=== PATIENT | female | born 1975 | race Caucasian/White ===

== ENCOUNTER 2023-12-19 01:37 | Day surgery (SDC) | payer OTHER, SELFPAY ==
[2023-12-02 13:31] VITALS: BMI 30.7
--- NOTE | 2023-12-19 10:02 | WPDANESEPPF ---
Anes - Initial Pre Proc Eval Procedure: Operation Date: 12/19/23 11:00 Proposed Procedures p Screening Colonoscopy - Joshua More DO Date/Time: 12/19/23 10:02 Surgeon: Joshua More DO Pre Op Diagnosis: Neoplasm screening Patient Data Age: 48 Gender: F Height: 1.68 m Weight: 86.3 kg Allergies Allergy/AdvReac Type Severity Reaction Status Date / Time acetaminophen [From [place]] Allergy Mild Flushing Verified 12/19/23 10:03 diphenhydramine Allergy Mild Hyperactive Verified 12/19/23 10:03 [From Benadryl] hydrocodone [From [place]] Allergy Mild Flushing Verified 12/19/23 10:03 Home Medications Medication Instructions Recorded Confirmed Type atorvastatin 20 mg tablet 20 mg PO QHS #90 tabs 10/07/23 12/19/23 Rx Patient hx anesthesia problems: none Family hx anesthesia problems: none Results Review: All pre-operative results and documents have been reviewed as part of the pre-operative evaluation. REPLACED BY [facility] Past Medical History Medical History (Updated 10/07/23 @ 15:17 by Shreya Connolly) Encounter for screening for malignant neoplasm of colon Trigger finger Surgical History Surgical History H/O cystoscopy H/O dilation and curettage S/P ACL repair Family History Family History Father Hypertension Family history of cardiovascular disease Family history of arthritis Diabetes mellitus Mother Hypertension Family history of cardiovascular disease Sibling Asthma Family history of arthritis Social History Social History Smoking status: Never smoker Alcohol intake: current Drinks per week: 3 Substance use: never Substance use type: does not use Living arrangements: with family Spiritual care concerns: No Anes - Eval Final PreProcedure Day of Procedure 12/19/23 10:02 Patient weight: obese Heart: regular rate and rhythm Lungs: clear to auscultation Neurological: alert and oriented Last oral intake: >/= 8 hours ASA classification: II Emergent: no Anesthetic plan: proceed Anesthesia type and monitoring: general GIVS and standard monitoring Results Review: All pre-operative results and documents have been reviewed as part of the pre-operative evaluation. Informed Consent: The patient's anesthetic plan and its attendant risks and benefits were discussed with the patient/family/POA. Questions were solicited and answers provided to the satisfaction of the patient/family/POA.
[2023-12-19 10:04] VITALS: BP 106/63; PULSE 73; RESP 16; TEMP 36; O2SAT 100; BMI 30.7
--- NOTE | 2023-12-19 10:52 | PM.IMHP ---
H&P: HPI History of Present Illness Date/Time: 12/19/23 10:52 Chief Complaint: screening for colorectal cancer Narrative: this is a 48-year-old woman who presents for colonoscopy. She denies any hematochezia or melena. She denies any family history cancer in first-degree relatives. Review of Systems Review of Systems: All systems reviewed & are unremarkable except as noted in HPI and below Constitutional: Constitutional: Denies chills, Denies fever(s), Denies headache(s) and Denies weight loss Eyes: Eyes: Denies change in vision ENT: Denies dizziness, Denies headache(s), Denies neck mass and Denies throat swelling Cardiovascular: Cardiovascular: Denies chest pain, Denies lightheadedness and Denies dyspnea Respiratory: Respiratory: Denies cough, Denies dyspnea and Denies wheezing Gastrointestinal: Gastrointestinal: Denies abdominal pain, Denies change in bowel habits, Denies nausea and Denies vomiting Genitourinary: Genitourinary: Denies hematuria and Denies dysuria Musculoskeletal: Musculoskeletal: Reports as per HPI Integumentary/Breasts: Skin/Breast: Reports as per HPI Neurologic: Denies dizziness and Denies headache(s) Allergic/Immunologic: Allergic/Immunologic: Denies throat swelling and Denies wheezing [facility] Past Medical History Medical History (Updated 10/07/23 @ 15:17 by Shreya Connolly) Encounter for screening for malignant neoplasm of colon Trigger finger Surgical History Surgical History H/O cystoscopy H/O dilation and curettage S/P ACL repair Family History Family History Father Hypertension Family history of cardiovascular disease Family history of arthritis Diabetes mellitus Mother Hypertension Family history of cardiovascular disease Sibling Asthma Family history of arthritis Social History Social History Smoking status: Never smoker Alcohol intake: current Drinks per week: 3 Substance use: never Substance use type: does not use Living arrangements: with family Spiritual care concerns: No Meds Home Medications and Allergies Home Medications Medication Instructions Recorded Confirmed Type atorvastatin 20 mg tablet 20 mg PO QHS #90 tabs 10/07/23 12/19/23 Rx Allergies Allergy/AdvReac Type Severity Reaction Status Date / Time acetaminophen [From [place]] Allergy Mild Flushing Verified 12/19/23 10:03 diphenhydramine Allergy Mild Hyperactive Verified 12/19/23 10:03 [From Benadryl] hydrocodone [From [place]] Allergy Mild Flushing Verified 12/19/23 10:03 Vital Signs Vital Signs - 24 hr 12/19/23 10:04 Temperature 36.0 C L Pulse Rate 73 Respiratory Rate 16 Blood Pressure 106/63 Pulse Oximetry 100 Oxygen Delivery Room Air Exam Const: General: no acute distress and alert Orientation/consciousness: patient oriented x3 HENMT: Head: normocephalic and atraumatic Ears: hearing grossly normal bilaterally Face/Nose/Sinus: Normal nares present Mouth: Yes Normal oral and palatal mucosa present Eyes: Periorbital: periorbital findings normal Sclera: sclerae normal EOM: EOMs intact bilaterally Neck: Neck: normal visual inspection, no lymphadenopathy and trachea midline Chest: Chest palpation & inspection: normal inspection of the chest Resp: Effort & Inspection: normal respiratory effort Auscultation: clear to auscultation bilaterally Cardio: Jugular venous distension: no JVD Rate: regular rate Rhythm: regular rhythm Heart sounds: S1 normal heart sound present and S2 normal heart sound present Peripheral pulses: Peripheral pulses 2+ throughout GI: Inspection: normal to inspection GI Palp: Yes Soft to palpation, No Tenderness to palpation present (GI), No Guarding due to palpation present (GI) and No Rebound tenderness present Percussion: Yes normal to per
[2023-12-19 11:19] VITALS: BP 125/61; PULSE 76; RESP 18; O2SAT 97
[2023-12-19] MEDS: LACTATED RINGERS 1,000 ML 150 ML IV CONT (11:19)
[2023-12-19 11:20] LABS: BEDSIDEPREGUCG Negative
[2023-12-19 11:25] VITALS: BP 125/61; PULSE 76; RESP 18; O2SAT 97
[2023-12-19 11:40] VITALS: BP 92/63; PULSE 57; RESP 21; O2SAT 100
== END 2023-12-19 11:54 | disposition home or self-care (01) ==
PROVIDERS: PCP Nurse Practitioner Family; Visit Provider Surgery
PROC: 0DJD8ZZ Inspection of Lower Intestinal Tract, Via Natural or Artificial Opening Endoscopic (ICD-10-PCS; CPT 45378; principal; 2023-12-19 11:00)
DX: Z12.11 Encounter for screening for malignant neoplasm of colon (principal); K62.1 Rectal polyp; E66.9 Obesity, unspecified; Z68.30 Body mass index [BMI] 30.0-30.9, adult
CPT/HCPCS: 45380; 88305; J2704; J7120

== ENCOUNTER 2024-11-09 07:11 | Outpatient (CLI) | payer OTHER, SELFPAY ==
--- NOTE | ~2024-11-09 | MM_ITS ---
EXAMINATION: MM screening azucena BI w heather HISTORY: Screening TECHNIQUE: Craniocaudal and mediolateral oblique 3-D tomosynthesis images were obtained and synthetic 2-D images were generated. CAD analysis was submitted and interpreted. COMPARISON: None available. BREAST PARENCHYMAL COMPOSITION: There are scattered areas of fibroglandular density. FINDINGS: There is no evidence of suspicious mass, calcification, or architectural distortion to sug gest malignancy in either breast. There has been no suspicious interval change. IMPRESSION: 1. No mammographic evidence of malignancy. 2. Recommend routine screening mammography in one year. BI-RADS Category 1: Negative Reviewed, dictated and finalized at location B.
--- OUTSIDE RECORDS SUMMARY | 2024-11-09 07:13 | XMS_ITS | Clinical Summary ---
Author Organization [facility] Virtual Care Address [address] [place] [id number] Phone Care Team Providers Care Business Development Assistant Name Role Phone Cathy Butler WELL DRILLER Primary Care Provider + Allergies Active Allergy Reactions Criticality Noted Date Comments Hydrocodone-Acetaminophen Flushing (skin) Medium 07/03 Nyquil Other (See comments) 07/03/2024 hyperactivity Medications progesterone (PROMETRIUM) 200 mg capsule Take 1 capsule (200 mg total) by mouth daily Active testosterone 30 mg/actuation (1.5 mL) solution in metered pump w/[place] 30 mg on the skin daily Active omega-3 fatty acids-fish oil 300-1,000 mg capsule Take 2 capsules (2 g total) by mouth daily Active loratadine (CLARITIN) 10 mg tablet Take 1 tablet (10 mg total) by mouth daily Active flaxseed oiL 1,000 mg capsule Take by mouth Active VITAMIN D2-VITAMIN K1 ORAL Take by mouth daily Active niacin ER 500 mg CR capsule Take 1 capsule (500 mg total) by mouth nightly Active magnesium gluconate 200 mg tabletIndicatio ns:hypomagnesem ia 1 tablet (200 mg total) daily Active rosuvastatin (CRESTOR) 5 mg tablet Take 1 tablet (5 mg total) by mouth daily 90 tablet 3 07/03/2024 07/04/19 26 Active semaglutide (WEGOVY) 1 mg/0.5 mL auto-injector Inject 1 mg under the skin every 7 days 2 mL 07/03/2024 Active Active Problems Problem Noted Date Diagnosed Date Varicose veins of both lower extremities 025 Assessment & Plan (07/03/2024 10:17 AM CDT): Is using compression socks Other hyperlipidemia 07/03/2024 Assessment & Plan (07/03/2024 10:17 AM CDT): Will re-initiate statin, will use rosuvastatin 5mg daily IFG (impaired fasting glucose) 07/03/2024 Assessment & Plan (07/03/2024 10:19 AM CDT): A1C 5.9% Due to FHx and personal hx will initiate Wegovy Surgical History Surgery Date Site/Laterality Comments ANTERIOR CRUCIATE LIGAMENT REPAIR 04/22/2014 - 5 Right TRIGGER FINGER RELEASE Right COLPOSCOPY DILATION AND CURETTAGE OF UTERUS Medical History Medical History Date Comments Varicose veins of both lower extremities Hyperlipidemia IFG (impaired fasting glucose) Family History Medical History Relation Name Comments Mental illness Brother Diabetes Father Diabetes Maternal Grandfather Hyperlipidemia Maternal Grandmother Hypertension Maternal Grandmother Hyperlipidemia Mother Hypertension Mother Diabetes Paternal Grandfather Dementia Paternal Grandmother Hyperlipidemia Sister Relation Name Status Comments Brother Alive Father Alive Maternal Grandfather Maternal Grandmother Mother Alive Paternal Grandfather Paternal Grandmother Sister Alive Social History Tobacco Use Types Packs/Day Years Used Date Smoking Tobacco: Never Smokeless Tobacco: Never Tobacco Cessation:Counseling Given: Not Answered AUDIT-C Answer Date Recorded Q1: How often do you have a drink containing alc ohol? 2-3 times a week 07/03/2024 Q2: How many drinks containi ng alcohol do you have on a typical day when you are drinking? 1 or 2 07/03/2024 Q3: How often do you have si x or more drinks on one occasion? Never 07/03/2024 PHQ-2 Answer Date Recorded PHQ-2 Total Score (If total score is 3 or more points, staff should administer the PHQ-9) 0 07/03/2024 Exercise Vital Sign Answer Date Recorde d On average, how many days pe r week do you engage in moderate to strenuous exercise (like a brisk walk)? 3 days 07/03/2024 On average, how many minutes do you engage in exercise at this level? 40 min 07/03/2024 Comments Unknown Sex and Gender Information Value Date Recorded Sex Assigned at Not on file Legal Sex Female 6:40 PM CDT Gender Identity Not on file Sexual Orientation Not on file Obstetrics History Last Filed Vital Signs Vital Sign Reading Time Taken Comments Blood Pressure 119/76 07/03/2024 9:47 AM CDT Pulse 86 07/03/2024 9:47 AM CDT Temperature - - Respiratory Rate - - Oxygen Saturation - - Inhaled Oxygen Concentration - - Weight 91.2 kg (201 lb) 07/03/2024 9:47 AM CDT Height 166.4 cm (5' 5.5) 07/03/2024 9:47 AM CDT Body Mass Index 32.94 07/03/2024 9:47 AM CDT Plan of Treatment Health Maintenance Due Date Last Done Comments Breast Cancer Screening-Mammogram 1977 Cervical Cancer Screening 1977 Colon Cancer Screening-Colonoscopy 1977 Hepatitis C Screening 1977 DTaP/Tdap/Td Vaccine (1 - Tdap) 1988 Hepatitis B Screening 08/29/1995 Regular Well Visit/Exam 18-64 08/29/1995 Pneumococcal vaccine <65 (1 of 2 - PCV) 1996 Zoster Vaccine (1 of 2) 1996 Influenza Vaccine (Season Ended) 2024 Depression Screening 07/03/2025 07/03/2024 Insurance Care Teams Business Development Assistant Relationship Specialty Start Date End Date Cathy Butler NP PCP - General Nurse Practitioner 07/03/24
--- OUTSIDE RECORDS SUMMARY | 2024-11-09 07:13 | XMS_ITS | Data Portability ---
Author Organization [facility], [address] [facility]rology ([place]) Address [address] [place] [address] Care Team Providers Care Environmental Projects Advisor Name Role Phone RILEY AVALOS Primary Care Provider TAHMINA DE LA ROSA Customer Service Receptionist SUYAPA RATLIFF Primary Care Provider [phone] Assessment No assessment recorded. Plan of Treatment Reminders Order Date Submit Date Provider Last Modified By Organization Details Last Modified Time Details Appointments Imaging 5.PRO 2025 10:45A M Radiology Not available Not available Not available Annual Well Woman Visit 15.EST 2025 11:00A M Dr. Tahmina De La Rosa Not available Not available Not available Lab Pap test, slide(s) , cervical 2023 024 [email or web address] [facility], [address] [place] [address], [id number], 10/11/2023 09:27:08 Referral None recorded . Procedures None recorded . Surgeries None recorded . Imaging MAMMO, screenin g, digital, bilatera l 2024 026 [email or web address] [facility], [address] [place] [address], [id number], 10/30/2024 12:17:12 MAMMO, screenin g, digital, bilatera l 2024 025 [email or web address] [facility], [address] [place], [address], 10/30/2024 12:17:12 MAMMO, screenin g, digital, bilatera l 2023 024 [email or web address] [facility] Only - [facility], [address] [place] [address], [id number], 12/19/2023 09:06:02 Medication Orders None recorded . Patient TargetsNo targets recorded. Patient Instructions Encounter Date Encounter Id Patient Instructions Last Modified By Organization Details Last Modified Time 09/20/2023 [id number] [facility] reviewed. ACOG pap guidelines reviewed. Pap done today due to h/o abnormal pap smears, last year ASCUS, HPVnegative. List of colonoscopy providers given. Order for mammogram given. HCRA neg. Heg C negative 2016. f/u one year or prn. [email or web address] Not available 09/20/2023 12:20:10 10/30/2024 [id number] [facility] reviewed. ACOG pap guidelines reviewed. Order for mammogram given. Colonoscopy 2023. Hep C negative 2016. HCRA negative 2022. f/u one year or prn. [email or web address] Not available 10/30/2024 12:16:49 Reason for Referral None Reported. 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 Perfo rmed at: [facility] Order ing Provi daisy: Tahmina De La Rosa nt Name: KLAUDIA MEDINA SUYAPA Lancemaida betty #: [id number] /A ge/Ge nder: 978 (Age: 48) / F Proce dure Date: 2023 SP ECIME N RECEI EROS * SureP ath HPV DNA with Pap, Cervi karla/E ndoce rvica l Speci men Adequ acy Satis facto ry for evalu ation Endoc ervic al cell/ trans forma tion zone compo nent prese nt Cytol ogic Diagn osis Negat norberto for intra epith elial lesio n or prashant SALAMANCA EL ECTRO NICAL LY VERIF IED BY KRISHNA CLEMENS( CP) * 09:22 HPV Testi ng Date Order ed: Date Repor debi: 08:22 Inter preta tion NEGAT NORBERTO for high risk types of HPV Test Infor matio n Human Papil lomav irus (HPV) testi ng perfo rmed using the [facility] [employer] [facility] kody 4800 HPV Test ([facility], [place] , [place] ). The kody HPV Test is a polym erase chain react ion (PCR) -base d DNA ampli ficat ion test that simul taneo usly ident ifies a jo d resul t for 12 HR HPV types (HPV- 31, 33, 35, 39, 45, 51, 52, 56, 58, 59, 66 and 68) and indiv idual resul ts for HPV-1 6 and HPV-1 8. High Risk HPV types are assoc iated with cervi karla carci noma and its predi sposi ng lesio ns: cervi karla atypi a and high grade squam ous intra epith elial lesio n (mode rate and sever e dyspl hemalatha, carci noma in situ/ KAREL 2 and KAREL 3). The U.S. Food and Drug Admin istra tion (FDA) has appro eros this test for use with SureP ath speci mens. The perfo rmanc e jeannie cteri stics of this test were verif ied by the [facility] ([facility] [place], [place] [facility]). [facility] is autho rized under Clini karla Labor atory Impro vemen t Amend ments (CLIA ) to perfo rm high- compl exity testi ng. Recom menda tion The Ameri can Cance r Socie ty (ACS) , Ameri can Socie ty for Colpo scopy and Cervi karla Patho logy (ASCC P), and Ameri can Socie ty for Clini karla Patho logy (ASCP ) recom mends that women who recei ve negat norberto resul ts on both tests shoul d be rescr eened no more frequ ently than every five years . HPV DNA posit norberto, cytol ogy negat norberto women shoul d be follo wed conse rvati vely repea ting BOTH tests in 12 month s. HPV-n egati ve ASC-U S shoul d be rescr eened with co-te sting in 3 years . All other Pap test inter preta tions shoul d be follo wed accor ding to ASCCP Conse nsus Guide lines for that parti cular inter preta tion. HPV testi ng is order ed as part of refle x testi ng as indic ated by the requi sitio n order and/o r as a resul t of addit ional testi ng reque sts submi tted by the physi felix. EL ECTRO NICAL LY VERIF IED BY KRISHNA CLEMENS( CP) * 024 08:22 CL INICA L/MEN STRUA L HISTO RY Menst rual Hx: Chiqui l cycli ng Other Clini karla Condi tions : ICD-1 0 Code: z01.4 19 The Pap test is a scree dashawn test for uteri ne cervi karla cance r with an inher ent, but low false negat norberto rate. A biops y is recom xiao d for any suspi cious or visib le lesio n. The patie nt shoul d be remin ded to consu lt a gynec ologi c care provi daisy if they exper ience any suspi cious signs or sympt oms regar dless of the Pap test resul t. END OF REPOR T Not Available Sd Only - [facility] [address] [place] [address], [id number], 09/26/2023 10:38:59 09/20/19 24 09/20/2023 MAMMO , screshelia tamez, digit al, bilat eral [address] [address] Teleph [phone] Name: SUYAPA FARMER [id number] am Date: 2023 Age: 48Phys ician: MD DE LA ROSA AMY : 1975Ex aminat ion: MAMM BILATE RAL DIGITA L SCREEN ING EXAM: MAMM BILATE RAL DIGITA L SCREEN ING, MAMM SCREEN ING TOMOSY NTHESI S ACCESS ION: [id number], [id number] 32 EXAM DATE: 024 10:00 AM HISTOR Y: This is a 48-yea r-old female who presen ts for her screen ing mammog lottie with no breast compla ints. COMPAR IRA: Prior studie s dating back to 020. DENSIT Y: The breast s are hetero geneou sly dense, which may obscur e small masses . FINDIN GS: 2D digita l compos ite views as well as 3D digita l tomosy nthesi s views were perfor med. There are no suspic ious masses , calcif icatio ns, or other findin gs within either breast . IMPRES BETTY: There is no mammog raphic eviden ce of malign baldo. The patien t should return in one year for her annual mammog lottie. She should return sooner if clinic ally ariadna carrera. ASSESS MENT: BI-RAD S 1: Negati ve. RECOMM ENDATI ON: 1. Screen ing Mammog lottie in 1 year. COMMEN TS: The patien t will be entere d into an automa debi remind er system for a screen ing mammog lottie in 1 year. The patien t has been or will be contac debi with the result s of this exam. Electr onical ly signed in Mccann cribe by: SHAYAN MASSEY RES, MD on:08/22 10:10 AM cc: Page PAGE [address] [facility] 1 [email or web address] Sd Only - [facility] Rad[facility] [address] [place], [address], 09/20/2023 12:21:48 Result Notes Documentation Provider Name and Address Organization Details Recorded Time Mammo, Screening, Digital, Bilateral : [facility] [address] [place] [address] Name: SUYAPA FARMER Date: 09/20/2023 Age: 48Physician: MD STONE, TAHMINA : 1975Examination: MAMM BILATERAL DIGITAL SCREENING EXAM: MAMM BILATERAL DIGITAL SCREENING, MAMM SCREENING TOMOSYNTHESIS [id number] EXAM DATE: 09/20/2023 10:00 AM HISTORY: This is a 48-year-old female who presents for her screening mammogram with no breast complaints. COMPARISON: Prior studies dating back to 06/19/2019. DENSITY: The breasts are heterogeneously dense, which may obscure small masses. FINDINGS: 2D digital composite views as well as 3D digital tomosynthesis views were performed. There are no suspicious masses, calcifications, or other findings within either breast. IMPRESSION: There is no mammographic evidence of malignancy. The patient should return in one year for her annual mammogram. She should return sooner if clinically indicated. ASSESSMENT: BI-RADS 1: Negative. RECOMMENDATION: 1. Screening Mammogram in 1 year. COMMENTS: The patient will be entered into an automated reminder system for a screening mammogram in 1 year. The patient has been or will be contacted with the results of this exam. Electronically signed in PowerScribe by: SHAYAN CARTER MD on:09/20/2023 10:10 AM cc: Page PAGE 1 of [facility] 1 Tahmina De La Rosa MD [address] [place] [address], [phone], [facility] 09/20/2023 12:21:49 Problems Name Problem SNOMED Code Status Onset Date Resolution Date Notes Provider Name and Address Organization Details Recorded Time Adult health examination Active 024 [facility] 4 11:31:38 Gynecologic examination Active 024 [facility] 4 11:31:44 Screening mammography Active 024 [facility] 4 11:31:51 Problem Notes None recorded. Procedures Surgical History Date Name Laterality Status Provider Name and Address Organization Details Recorded Time 4 Colonoscopy completed [facility] 10/30/2024 11:59:03 4 Date of Last Mammogram completed [facility] 10/26/2024 16:58:46 4 Date of Last Pap Smear completed [facility] 10/26/2024 16:58:58 Dilation and curettage completed [facility] 09/12/2023 11:32:28 colposcopy completed [facility] 09/12/2023 11:32:34 colonoscopy completed [facility] 09/12/2023 11:32:39 Imaging Results None recorded. Procedure Notes None recorded. Medical Equipment None Reported. Allergies Allergen ID Allergen Name Allergen Category Reaction Reaction Severity Criticality Documentation Date Start Date Code Code System Note Provider Name and Address Organization Details Recorded Time [id number] acetamino phen / hydrocodo ne medicatio n flushing Not available Not available 05/22/20232014 26844 2 RxNorm React ion: Flush ing; Itchi ng; Not Available [facility] 4 04:39:50 181226 acetamino phen / dextromet horphan / doxylamin e / pseudoeph edrine medicatio n Not available Not available Not available 05/20/20232013 05820 4 RxNorm Not Available [facility] 4 23:13:50 755292 Benadryl medicatio n Not available Not available Not available 05/20/20232018 28004 7 RxNorm Comme nt: Annot ation s: JUSTINA MOJICA 2018 10:00 AM hyper activ ity/j itter y; ; Not Available [facility] 4 23:13:50 Medications Name Sig Start Date Stop Date Status Note LastModified by Organization Details LastModified Time cephalexin 500 mg capsule 09/19 completed Not Available Not Available Not Available mupirocin 2 % topical ointment 09/19 completed Not Available Not Available Not Available testosteron e 1 % (25 mg/2.5 gram) transdermal gel packet Apply 2 packets every day by transderm al route. active Not Available Not Available No t Available rosuvastati n 5 mg tablet Take 1 tablet every day by oral route. active Not Available Not Available No t Available progesteron e 200mg once a day active Not Available Not Available No t Available semaglutide (weight loss) active Not Available Not Available Not Available Vitals Date Recorded Body height Body mass index (BMI) Body weight Systolic And Diastolic Provider Name and Address Organization Details Last Updated DateTime 09/20/2023 165.1 cm 32.3 kg/m2 57426.92 g 124/66 mm[Hg] Jenifer Cruz [facility] 09/20/2023 11:41:04 Date Recorded Body weight Body mass index (BMI) Body height Systolic And Diastolic Provider Name and Address Organization Details Last Updated DateTime 10/30/2024 97699.66 g 31.9 kg/m2 165.1 cm 108/72 mm[Hg] [facility] 10/30/2024 11:57:07 Social History Question Answer Notes LastModified by [employer] Details LastModified Time Tobacco Smoking Status Never Smoker [facility] 10/30/2024 11:48:53 Do You Have An Advance Directive? Yes [email or web address] Information not available 09/18/2023 What Is Your Level Of Caffeine Consumption? Occasional [email or web address] Information not available 09/18/2023 What Is Your Code Status? Full Code [email or web address] Information not available 09/18/2023 How Many Times Per Week Do You Exercise? 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 Yes [email or web address] Information not available 09/18/2023 What Was The Date Of Your Most Recent Tobacco Screening? 09/20/2023 [email or web address] Information not available 09/18/2023 What Is Your Relationship Status? [email or web address] Information not available 09/18/2023 Sex: Unknown Functional Status Question Answer Note LastModified by [employer] Details LastModified Time How many times per week do you consume alcohol? 1-2 times per week [email or web address] Information not available 09/18/2023 Do you use any illicit or recreational drugs? No [email or web address] Information not available 09/18/2023 What is your level of alcohol consumption? Occasional [email or web address] Information not available 09/18/2023 Are you currently employed? 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 Occasional [email or web address] Information not available 09/18/2023 Mental Status None recorded. Family History Relationship Description Onset Age of this Age Resolved Age Notes LastModified by Organization Details LastModified Time Paternal Aunt Family history of cancer of colon mlannon Not available 2023 11:33:09 Maternal Aunt Familial cancer of breast mlannon Not available 2023 11:33:17 Mother Arthritis [email or web address] Not available 09/13/2023 14:05:07 Mother Heart disease [email or web address] Not available 2023 14:05:07 Mother Hypertensive disorder [email or web address] Not available 2023 14:05:07 Mother Hypercholest erolemia [email or web address] Not available 2023 14:05:07 Father Arthritis [email or web address] Not available 09/13/2023 14:05:07 Father Diabetes mellitus [email or web address] Not available 2023 14:05:07 Father Heart disease [email or web address] Not available 2023 14:05:07 Father Hypertensive disorder [email or web address] Not available 2023 14:05:07 Father Hypercholest erolemia [email or web address] Not available 2023 13:01:22 Maternal Grandfather Arthritis [email or web address] Not available 08/21 14:05:07 Maternal Grandfather Heart disease [email or web address] Not available 2023 14:05:07 Maternal Grandfather Hypertensive disorder [email or web address] Not available 2023 13:01:22 Maternal Grandfather Hypercholest erolemia [email or web address] Not available 2023 13:01:22 Paternal Grandfather Arthritis [email or web address] Not available 08/21 14:05:07 Paternal Grandfather Diabetes mellitus [email or web address] Not available 2023 14:05:07 Paternal Grandfather Heart disease [email or web address] Not available 2023 14:05:07 Paternal Grandfather Hypercholest erolemia [email or web address] Not available 2023 13:01:22 Maternal Grandmother Arthritis [email or web address] Not available 08/21 14:05:07 Maternal Grandmother Heart disease [email or web address] Not available 2023 14:05:07 Paternal Grandmother Arthritis [email or web address] Not available 08/21 14:05:07 Paternal Grandmother Heart disease [email or web address] Not available 2023 14:05:07 Paternal Grandmother Hypertensive disorder [email or web address] Not available 2023 14:05:07 Unspecified Relation Family history of malignant neoplasm [email or web address] Not available 2023 14:05:07 Brother Hypertensive disorder [email or web address] Not available 2023 13:01:22 Medical History Condition Response Coronary Artery Disease N Growth Hormone Deficiency (Pituitary Dwa rfism) N Hyperthyroidism N MRSA N Blood Transfusion N Emphysema N COPD N Depression N Pneumonia N Peripheral Arterial Disease N Prostate Problems N TIA N Paralysis N Anxiety Disorder N Obesity N Infertility N Polyps N Acid Reflux (GERD) N Flat Foot N Stroke N Varicosities N Neck Injury N Other Sleep Disorders N Rheumatoid Arthritis N Fibromyalgia N Kidney Disease N Pituitary Disorder N Enuresis N Brain Tumors N Acne N Carpel Tunnel N Skin Problems N Eating Disorder N Meningitis N Constipation N Brain Injury N Art (IVF or FET) N Undescended Testicle N Tuberculosis N Cerebral Palsy N Myocardial Infarction N Asthma N Amputation N Trauma/Violence N Peripheral Vascular Disease N Jaundice N Vertigo N Sleep Disorder N Pulmonary Embolism N Hematologic Disease N Thyroid Disease N Colon Cancer N Drug/Latex Allergies/Reactions N Lung Disease N Glaucoma N Defects or Inherited Disease N Pacemaker N Spine/Back Problems N Orthopedic Problems N Anesthesia Complications N Orthotics N Serious Illness or Injuries N Congenital Anomalies N History of abnormal pap N Endometriosis N Liver Disease N HIV N Parkinson's Disease N Thyroid Problems N GI Problems N Transplant N Anemia N Multiple Sclerosis N Colon Polyps N Heart Attack (SC) N Psychiatric Illness N Hypospadia N Diabetes N Pulmonary (TB, Asthma) N Cardiomyopathy N Heart Murmur N Inflammatory Bowel Disease N Congestive Heart Failure (CHF) N Valvular Heart Disease N Hyperlipidemia Y Abuse/Domestic Violence N Lupus N Epilepsy/Seizures N Reflux/GERD N Depression/ depression N Aneurysm N Heart Disease N Pre-Eclampsia N Other N Gout N High Blood Pressure N Atrial Fibrillation N Kidney Stones N Enlarged Prostate N Head Trauma/Injury N Dermatologic Disorders N Congenital Heart Disease N Gestational Diabetes N Spine Problems N Obstructive Sleep Apnea N Muscle, Joint, or Bone Problems N Autoimmune disease N Vision or Eye Problems N Arthritis N Blood Clot N Cancer N Neurologic/Epilepsy N Crohn's Disease N Leg or Foot Ulcers N Aortic Aneurysm N Arrhythmia N Short Stature N Headaches N Heart Problems N Scoliosis N Migraines N Kidney or Bladder Problems N Type 1 Diabetes Mellitus N Breast Surgery N Joint Pain N Encephalitis N Neck Pain N PTSD N Urinary Problems N Ulcers N Hepatitis/Liver Disease N Bleeding Disorder N AIDS/HIV N Allergic Rhinitis N Back Problems N Atrial Flutter N Seizures N Thyroid Disorder N GERD/Reflux N Neuropathy N Restless leg syndrome N Thrombophilias N Stabismus N Breast Cancer N Hernia N Ostomy N Hypothyroidism N Breast Problem N Vascular Disease N Hematologic disorders N History of STI N Genitourinary Disease N Deep Vein Thrombosis N Polycystic ovary syndrome N Varicose Veins N Spasticity N Developmental Problems N Carotid Disease N History of Blood Thinners N Alcohol Overuse/Alcohol Abuse N High Cholesterol N Meniers N Valvular Abnormalities N Organ Transplant N Attention-deficit Hyperactivity Disorder N Sickle Cell Trait N Falls N Osteoporosis/Osteopenia N Back Pain N Chronic Ulcerative Colitis N Neurological Problems N Ovarian Cancer N Anticoagulation therapy N Alzheimer s N Eczema N Diverticulitis N Dementia N Ankylosing Spondylitis N Sleep Apnea N Mental Problems N Warfarin Management N Osteoporosis N Gynecological History Statement/Question Response Abnormal Pap Y Date of Last Mammogram 09/20/2023 Flow Moderate Date of LMP 10/28/2024 STIs/STDs N Hep C Screening 08/24/2016 HPV Vaccine N Duration of Flow (days) 5 Age at Menarche 16 Current Control Method Partner Vas ectomy Sexually Active? Y Menses Monthly Y Date of Last Pap Smear 09/20/2023 LMP Definite Colonoscopy 11/21/2023 Hormone Replacement Therapy Y Obstetrics History GPAL:G 0 P 0 0 0 0 Immunizations Vaccine Type Date Status Note Provider Nam e and Address Organization Details Recorded Time Influenza, split virus, quadrivalent, preservative 7 completed [facility] 10/30/2024 11:48:17 MMR 2 completed Maryann Hudson null, [facility] 10/30/2024 11:48:17 MMR 0 completed Maryann Hudson null, [facility] 10/30/2024 11:48:17 [facility] 5 [facility] 10/[facility] 11:48:17 Tdap 7 completed Maryann Hudson null, [facility] 10/30/2024 11:48:17 DTP 0 [facility] 10/30/2024 11:48:17 DTP 3 completed [facility] 10/30/2024 11:48:17 DTP 8 completed [facility] 10/30/2024 11:48:17 DTP 8 completed [facility] 10/30/2024 11:48:17 DTP 8 completed [facility] 10/30/2024 11:48:17 OPV 0 completed [facility] 10/30/2024 11:48:17 OPV 3 completed Maryann Hudson null, [facility] 10/30/2024 11:48:17 OPV 8 completed [facility] 10/30/2024 11:48:17 OPV 8 completed [facility] 10/30/2024 11:48:17 OPV 8 completed [facility] 10/30/2024 11:48:17 Td (adult), 2 Lf tetanus toxoid, preservative free, adsorbed 2 completed [facility] 10/30/2024 11:48:17 Hep A, adult 3 completed [facility] 10/30/2024 11:48:17 Influenza, split virus, quadrivalent, PF 5 completed [facility] 10/30/2024 11:48:17 Influenza, split virus, quadrivalent, PF 3 completed [facility] 10/30/2024 11:48:17 Past Encounters Encounter ID Performer Location Encounter Start Date Encounter Closed Date Diagnosis/Indication Diagnosis SNOMED-CT Code Diagnosis ICD10 Code Diagnosis Note [id number] Tahmina De La Rosa MD [address] [facility] ([place]) [address] [place] [address] 1 [place] [address] 09/20/2023 11:10:05 09/20/2023 12:25:05 Screening mammography 43068659 Z12.31 Gynecologi c examination 82769274 Z01.419 [id number] Tahmina De La Rosa MD [address] [facility] [place]) [address] [place] [address] 1 [place] [address] 10/30/2024 11:27:35 10/30/2024 12:18:02 Female genitalia finding 508183854 Z01.419 Breast darin plasm screening status 784932990 Z12.31 Health Concerns Section Related Observation LastModified by Organization Detai ls LastModified Time None Recorded Concern Status LastModified by Organization Details LastModified Time None Recorded Advance Directives Directive Y: Payers Insurance Date Sequence Insurance Name Policy Number Policy Joy Covered Member ID Joy Member ID Guarantor Name 10/30/2024 1 [employer] (PPO) [id number] Suyapa Farmer [id number] Suyapa Farmer Notes Date Note Type Note Provider Name and Address Organization Details Recorded Time 09/20/2023 text/html 48 year old here today for annual exam. Patient is . Patient has no other concerns today. Tahmina De La Rosa MD [address] [place] [address], [phone], [facility] 09/20/2023 12:20:40 10/30/2024 text/html Annual GYNReport ed bypatient.History: no gynecologic complaints Menstrual cycle:normal menses Urinary symptoms:no hematuria; no incontinence Vulva:no genital lesion Vagina:normal vaginal discharge Breast:no breast pain; no breast lump; no nipple discharge Sexual complaints:no sexual complaints; no pain during intercourse; normal libido Menopausal Symptoms:no menopausal symptoms; normal vaginal lubrication Psychological symptoms:no depression; no anxiety; no PMDD Patient is a 49 year old here today for her annual exam. She would like mammogram order sent to [facility]. She is currently on nightly progesterone and testosterone cream prescribed by a doctor in [place]. She has a spot on her right labia that she would like looked at. She reports that she has had it for awhile, but she feel like it is changing. She said it feels like a small lump. She denies any pain or drainage. Tahmina De La Rosa MD [address] [place] [address], [phone], [facility] 10/30/2024 12:17:06 OBGyn Episode No OBEpisode recorded.
--- OUTSIDE RECORDS SUMMARY | 2024-11-09 07:13 | XMS_ITS | Encounter Summary ---
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
--- OUTSIDE RECORDS SUMMARY | 2024-11-09 07:13 | XMS_ITS | Encounter Summary ---
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
--- OUTSIDE RECORDS SUMMARY | 2024-11-09 07:13 | XMS_ITS | Referral Summary ---
Author Organization [facility] Virtual Care Address [address] [place] [phone] Phone Care Team Providers Care Track Sweeper Name Role Phone Cathy Butler ENGINEER PROCESS Primary Care Provider + Allergies Active Allergy [...] FHx and personal hx will initiate Wegovy Social History Tobacco Use Types Packs/Day Years [...] on file Sexual Orientation Not on file Last Filed Vital Signs Vital Sign Reading [...] 07/03/2024 9:47 AM CDT Plan of Treatment Not on file Insurance R [facility] Care Teams Track Sweeper Relationship Specialty Start Date End Date Cathy Butler NP PCP - General Nurse Practitioner 07/03/24
--- OUTSIDE RECORDS SUMMARY | 2024-11-09 07:13 | XMS_ITS | Clinical Summary ---
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 Gender Identity Not on file Sexual Orientation Not on file Last Filed Vital Signs Vital Sign Reading Time Taken Comments Blood Pressure 128/74 07/15/2013 3:58 PM CDT Pulse - - Temperature - - Respiratory Rate - - Oxygen Saturation - - Inhaled Oxygen Concentration - - Weight 95.3 kg (210 lb) 07/15/2013 3:58 PM CDT Height 167.6 cm (5' 6) 05/18/2014 1:30 PM CERTIFIED NURSE PRACTITIONER Body Mass Index 33.89 07/15/2013 3:58 PM CDT Plan of Treatment Health Maintenance Due Date Last Done Comments Cervical Cancer Screening Pa p Smear (Age 30 to 64) Every 3 Years 1977 Colorectal Cancer Screening Colonoscopy (10 Years) 1977 Annual Physical 1980 Hepatitis C 08/29/1995 DTaP, Tdap and Td Vaccines ( 1 - Tdap) 1996 Hepatitis B Vaccines (1 of 3 - 19+ 3-dose series) 1996 Cervical Cancer Screening Pa p with HPV Testing (Age 30 to 64) Every 5 Years 08/29/2007 Cervical Cancer Screening with HPV 08/29/2007 Mammogram Screening 2017 COVID-19 Vaccine ( - 2023-2 5 season) 2023 Meningococcal B Vaccine Aged Out No l onger eligible based on patient's age to complete this topic Meningococcal Vaccine Aged Out No lorraine jonnathan eligible based on patient's age to complete this topic Pneumococcal Vaccine: Pediat rics (0 to 5 Years) and At-Risk Patients (6 to 49 Years) Aged Out No longer eligible b ased on patient's age to complete this topic RSV Immunizations Under 20 Months Aged Out No longer eligible based on patient's age to complete this topic
== END 2024-11-09 07:12 | disposition home or self-care (01) ==
PROVIDERS: PCP Nurse Practitioner Family
DX: Z12.31 Encounter for screening mammogram for malignant neoplasm of breast (principal)
CPT/HCPCS: 77063; 77067